=== PATIENT | male | born 1955 | race Caucasian/White ===

== ENCOUNTER 2021-03-17 05:40 | Outpatient (CLI) | payer OTHER, SELFPAY ==
[2021-03-17 06:03] VITALS: BP 126/70; PULSE 64; RESP 18; TEMP 37.2; O2SAT 95
[2021-03-17 06:04] VITALS: BMI 29.0
--- NOTE | 2021-03-17 06:16 | AMB.MCA ---
Patient Information Symptom onset date: 03/09/21 COVID 19 common symptoms: positive fever(s), chills, cough, non-productive cough, dyspnea, fatigue, body aches and nasal congestion COVID 19 other sytmptoms: negative requiring oxygen Severity: mild Treatment prior to arrival: none [facility] COVID test results: No Data to Display outside results available, scanned Criteria/Plan Inclusion/Exclusion Criteria weight >/= 40kg, + direct test </= 10 days ago and symptom onset </= 10 days ago age >/= 55 and has hypertension not requiring hospitalization, not requiring oxygen (if not chronically on oxygen) and no increase oxygen requirement (if chronically on oxygen) Patient education patient/family/caregiver received/reviewed fact sheet, Emergency Use Authorization/unapproved drug status discussed with patient/family/caregiver, alternatives to this treatment discussed with patient/family/caregiver, risks and benefits of medication reviewed with patient/family/caregiver, patient/family/caregiver given opportunity for questions, which were answered and patient consents to receiving Monoclonal Antibody Treatment Plan for treatment Meets criteria for Monoclonal Antibody infusion Ordering Monoclonal Antibody infusion for today
[2021-03-17 09:25] VITALS: BP 136/72; PULSE 71; O2SAT 94
--- NOTE | 2021-03-23 14:32 | DCPLANNER ---
flight reservations manager had message that patient received the monoclonal antibody infusion. flight reservations manager called to check on patient. Patient stated that he was feeling better. Before the infusion, he had aches, did not have a fever, he did have a cough. Patient stated that after the infusion, he has not had a fever, he still has a cough. Patient stated that overall he is feeling better.
== END 2021-03-17 09:18 | disposition home or self-care (01) ==
LOC: ER 05:45
PROVIDERS: Family Provider Family Medicine; Visit Provider Nurse Practitioner
DX: U07.1 COVID-19 (principal)

== ENCOUNTER 2023-12-14 10:33 | Outpatient (CLI) | payer SELFPAY ==
[2023-12-14 10:59] LABS: D Dimer 0.34 ug/mLFEU (0-0.59)
== END 2023-12-14 10:34 | disposition home or self-care (01) ==
PROVIDERS: Visit Provider Family Medicine
DX: R07.89 Other chest pain (principal)
CPT/HCPCS: 85378

== ENCOUNTER 2023-12-24 06:57 | Outpatient (CLI) | payer OTHER, SELFPAY ==
[2023-12-24 07:46] VITALS: BMI 30.7
--- NOTE | 2023-12-24 07:49 | NMCV_ITS ---
NM ellie perf SPECT r/s* [id number] Abdelrahman Varela Age: 68 Gender: M : 1955 Exam Date: 12/24/2023 08:20 Ordering Phys: Alfredo Jiang MD Technologist: CASANDRA Ochoa Exam Location: [facility] Indications: CHEST PAIN STRESS TEST Please see separate stress test report in [facility] for full findings IMAGE PROTOCOL Rest/Stress 1 Lexiscan Day Radiopharmaceutical Dose (mCi) Administration Site Administered by Rest: Tc-99m 10.7 IV CASANDRA Phan Sestamibi Stress:Tc-99m 32.8 IV CASANDRA Ochoa Sestamilesley Rest: 24-Dec-2023 60 Discovery 630 Stress: 24-Dec-2023 30 Discovery 630 0.4mg Lexiscan. Images obtained in supine and prone position. SPECT RESULTS Technical Quality: Excellent Raw Data Analysis: Normal Image Corrections: No attenuation or motion correction applied Summed Stress Score: 1 Summed Rest Score: 1 Summed Difference Score: 1 PERFUSION FINDINGS SPECT images demonstrate homogeneous tracer distribution throughout the myocardium. FUNCTIONAL RESULTS (calculated via Gated SPECT) Stress Image LV EF (%): 59 Stress EDV (mL):90 TID: 0.95 Stress ESV (mL):37 FUNCTIONAL FINDINGS: There is normal left ventricular systolic function. IMPRESSIONS 1. Normal myocardial perfusion imaging with no evidence of ischemia 2. LV systolic function is normal Flo Grayson MD (Electronically Signed) Final Date: 27 Dec 2023 08:09 S
--- NOTE | 2023-12-24 07:49 | ECG_ITS ---
[facility] Test Date: 2023-12-24 Pat Name: Abdelrahman Varela Department: Room: Gender: Male Clinical Product Manager: : 1955 Requested By: Alfredo Zheng Order Number: [id number] Celena MD: Flo Grayson M.D. Interpretive Statements NAME OF STUDY: LEXISCAN SESTAMIBI STRESS TEST INDICATION: [CP ON EXERTION, ] Procedure: At the baseline, the blood pressure was 156/86 mmHg with a heart rate of 62 bpm. The electrocardiogram showed normal sinus bradycardia with normal axis with normal ST and T's. The Lexiscan was infused over a period of 20 seconds. A total of 0.4 mg of Lexiscan was infused. The stress phase was continued for a total of 5 minutes. Heart rate was at the end of stress phase was 71 bpm and a blood pressure of 136/64 mmHg. The EKG at the peak infusion revealed normal sinus rhythm with no significant ST-T wave changes. Sestamibi was injected 20 seconds after the Lexiscan infusion. Blood pressure at the end of recovery phase was 135/64 mmHg with a heart rate of 70 bpm. Conclusion: 1. Normal EKG response to Lexiscan infusion 2. No Lexiscan induced chest pain or cardiac arrhythmia. 3. Normal blood pressure and heart rate response. 4. Sestamibi/sestamibi perfusion scan pending; see separate report. Electronically Signed On 01-14-2024 18:32:16 CDT by Flo Grayson M.D. [id number]
[2023-12-24] MEDS: regadenoson 0.4 Mg/5 ml Syringe 0.400000000000000022 MG IVP (09:03)
[2023-12-24 09:43] VITALS: BP 133/65; PULSE 68
== END 2023-12-24 06:58 | disposition home or self-care (01) ==
PROVIDERS: PCP Family Medicine; Visit Provider Family Medicine
DX: R07.89 Other chest pain (principal)
CPT/HCPCS: 36415; 78452; 93017; 96374; A9500; J2785

== ENCOUNTER → 2025-06-29 08:00 | Outpatient (BNVA) | payer MEDICARE, SELFPAY | PROVIDERS: PCP Family Medicine; Referring Provider Family Medicine; Visit Provider Nurse Practitioner Family | DX: L21.8 Other seborrheic dermatitis (principal); L73.8 Other specified follicular disorders; D18.01 Hemangioma of skin and subcutaneous tissue; L81.4 Other melanin hyperpigmentation; L57.0 Actinic keratosis | CPT/HCPCS: 17000; 99203 ==